=== PATIENT | male | born 1970 | race African-American/Black ===

== ENCOUNTER 2018-02-22 12:31 | Emergency (ER) | payer SELFPAY ==
[2018-02-22 13:59] LABS: Hemoglobin 7.2 g/dL (14.0-18.0); Mean Corpuscular HGB CONC 28.5 g/dL (32.0-36.0); Mean Corpuscular Hemoglobin 16.6 pg (27.0-31.0); Mean Corpuscular Volume 58.1 fl (80.0-94.0); Mean Platelet Volume 5.2 fL (7.4-10.4); Platelet Count 156 thou/uL (130-400); RBC Distribution Width 21.6 % (11.5-14.5); Red Blood Cell (RBC) Count 4.36 mill/uL (4.70-6.10); White Blood Cell (WBC) Count 5.4 thou/uL (4.8-10.8)
[2018-02-22 14:17] LABS: ALT (SGPT) 64 U/L (8-55); AST (SGOT) 94 U/L (5-34); Albumin 4.4 g/dL (3.5-5.0); Alkaline Phosphatase 78 U/L (40-150); Anion Gap 14 mmol/L (10-20); Anisocytosis MODERATE=16-30 cells (100X) (0-5/hpf); BUN (Urea Nitrogen) 6 mg/dL (8.9-20.6); Bilirubin, Total 2.2 mg/dL (0.2-1.2); Calc. Creatinine Clearance 0 mL/min (70-130); Calcium 9.1 mg/dL (7.8-10.44); Carbon Dioxide 26 mmol/L (22-29); Chloride 100 mmol/L (98-107); Eosinophils 1 % (0-10); Estimated GFR-MDRD Greater than 90; Globulin 4.5 g/dL (2.4-3.5); Glucose 76 mg/dL (70-105); Hypochromia MODERATE=16-30 cells (100X) (0-5/hpf); Lipase 49 U/L (8-78); Lymphocytes 30 % (21-51); MDiff Complete? YES; Microcytosis MODERATE=15-30 cells (100X) (0-5/hpf); Monocytes 8 % (0-10); Neutrophil 61 % (42-75); Nucleated RBC 1 % (0); Potassium 3.8 mmol/L (3.5-5.1); Protein, Total 8.9 g/dL (6.0-8.3); Sodium 136 mmol/L (136-145)
[2018-02-22 16:01] LABS: Bilirubin Negative (Negative); Blood, Urine Negative (Negative); Clarity CLEAR (Clear); Glucose, Urine (Dipstick) Negative (Negative); Leukocyte Small (Negative); Nitrite Negative (Negative); Protein, Urine (Dipstick) 30 mg/dL (Neg-Trace); Specific Gravity, Urine 1.022 (1.002-1.036)
[2018-02-22 16:03] LABS: Bacteria/HPF None Seen HPF (None Seen); Hyaline Casts/LPF 4-6 HYALINE CAST LPF (0-3 Hyaline); Pathc Cast-AUWi Flag 0.43 (0-2.49); Squamous Epithelial 0-3 HPF (0-3)
[2018-02-22 16:33] LABS: Yeast-AUWi Flag 26.3 (0-25.0)
[2018-02-22 16:43] LABS: RBC/HPF None Seen HPF (0-3); Yeast-All Forms None Seen HPF (None Seen)
== END 2018-02-22 16:20 | disposition home or self-care (01) ==
LOC: ERS 12:31
DX: D64.9 Anemia, unspecified (principal); K64.9 Unspecified hemorrhoids
CPT/HCPCS: 36415; 80053; 81003; 81015; 82274; 83690; 85025; 85060; 86850; 86900; 86901; 99284

== ENCOUNTER 2018-04-07 08:50 | Day surgery (SDC) | payer SELFPAY ==
[2018-04-07] MEDS ORDERED: Acetaminophen 500 MG TAB PO SCH (09:15)
[2018-04-07] MEDS ORDERED: diphenhydrAMINE 25 MG CAP PO SCH (09:15)
[2018-04-07] MEDS ORDERED: Sodium Chloride 0.9% 40 ML ONE (09:30)
[2018-04-07 13:37] LABS: Hemoglobin 7.6 g/dL (14.0-18.0)
[2018-04-07 15:36] VITALS: BP 140/83; TEMP 98.5
== END 2018-04-07 15:49 | disposition home or self-care (01) ==
LOC: ONC/OP 08:50
PROVIDERS: ATTEND Internal Medicine Hematology & Oncology
PROC: 30233N1 Transfusion of Nonautologous Red Blood Cells into Peripheral Vein, Percutaneous Approach (ICD-10-PCS; principal; 2018-04-07)
DX: D64.9 Anemia, unspecified (principal); D69.6 Thrombocytopenia, unspecified
CPT/HCPCS: 36415; 36416; 36430; 85014; 85018; 86850; 86900; 86901; A4216; P9016

== ENCOUNTER 2023-08-03 18:32 | Inpatient (IN) | payer OTHER, SELFPAY ==
[~2023-08-03 18:32] MED LIST: Iopamidol-370 76% 500 ML MDV (1 ML CHARGE) ONE
[2023-08-03 19:19] LABS: #Basophils 0.1 thou/uL (0.0-0.2); #Eosinphils 0.1 thou/uL (0.0-0.7); #Monocytes 0.9 thou/uL (0.11-0.59); #Neutrophils 4.9 thou/uL (1.40-6.50); %Eosinophils 1.4 % (0.0-10.0); %Lymphocytes 23.4 % (21.0-51.0); %Monocytes 11.5 % (0.0-10.0); %Neutrophils 62.3 % (42.0-75.0); Hematocrit 26.8 % (42.0-52.0); Hemoglobin 7.8 g/dL (14.0-18.0); Mean Corpuscular HGB CONC 29.1 g/dL (32.0-36.0); Mean Corpuscular Hemoglobin 18.9 pg (27.0-31.0); Platelet Count 145 10x3/uL (130-400); RBC Distribution Width 21.4 % (11.5-14.5); Red Blood Cell (RBC) Count 4.12 mill/uL (4.70-6.10); White Blood Cell (WBC) Count 7.9 10x3/uL (4.8-10.8)
[2023-08-03 19:31] LABS: INR-International Normal Ratio 1.2; Prothrombin Time 15.4 sec (12.0-14.7)
[2023-08-03 19:32] LABS: PTT 27.7 sec (22.9-36.1)
[2023-08-03] MEDS ORDERED: Ondansetron PF 4 MG/2 ML Vial ONE (19:42)
[2023-08-03] MEDS ORDERED: Ketorolac Tromethamine 30 MG/ML VIAL ONE (19:42)
[2023-08-03 19:47] LABS: ALT (SGPT) 57 U/L (8-55); AST (SGOT) 83 U/L (5-34); Albumin 3.6 g/dL (3.5-5.0); Alcohol 334.6 mg/dL (Less than 10); Alkaline Phosphatase 55 U/L (40-110); Anion Gap 14 mmol/L (10-20); BUN (Urea Nitrogen) 6 mg/dL (8.4-25.7); Calc. Creatinine Clearance 0 mL/min (70-130); Calcium 8.2 mg/dL (7.8-10.44); Carbon Dioxide 24 mmol/L (22-29); Chloride 98 mmol/L (98-107); Estimated GFR 82; Globulin 3.7 g/dL (2.4-3.5); Glucose 100 mg/dL (70-105); Lipase 76 U/L (8-78); Potassium 3.6 mmol/L (3.5-5.1); Protein, Total 7.3 g/dL (6.0-8.3); Sodium 132 mmol/L (136-145)
[2023-08-03 19:48] LABS: Actual Bicarbonate (HCO3v) 23.9 mEq/L (22-28); Base Excess -0.9 mEq/L (-2.0 to +3.0); Calcium, Ionized (venous) 0.99 mmol/L (1.16-1.32); Chloride (VBG) 102 mmol/L (98-106); Hematocrit-VBG 27 % (42.0-52.0); Hemoglobin (Hb) 9.2 g/dL (13.1-17.2); Potassium (VBG) 3.83 mmol/L (3.70-5.30); Sodium 135.8 mmol/L (133-146); pH (venous) 7.392 (7.32-7.43)
[2023-08-03 19:51] LABS: Troponin I 0.014 ng/mL (< 0.028)
[2023-08-03 20:29] LABS: Anisocytosis MODERATE=16-30 cells HPF (0-5); Burr Cells SLIGHT = 2-5 cells HPF (0-1); CellaVision Operator ID LAB.KB; Hypochromia SLIGHT = 6-15 cells HPF (0-5); Microcytosis MODERATE=15-30 cells HPF (0-5); Ovalocytes SLIGHT = 2-5 cells HPF (0-1); Platelet Adequacy Comment Platelets Normal; Poikilocytosis SLIGHT = 6-15 cells HPF (0-5); Polychromasia MODERATE = 3-4 cells HPF (0-2)
[2023-08-03] MEDS ORDERED: Ondansetron ODT 4 MG TAB SL PRN (21:15)
[2023-08-03] MEDS ORDERED: Ondansetron PF 4 MG/2 ML Vial IVP PRN ×2 (21:15→23:22)
[2023-08-03] MEDS ORDERED: Morphine 4 MG/ML VIAL SLOW IVP PRN (21:15)
[2023-08-03] MEDS ORDERED: Acetaminophen 325 MG TAB PO PRN (21:15)
[2023-08-03] MEDS ORDERED: Sodium Chloride 0.9% 1,000 ML IV SCH ×2 (21:15→23:59)
[2023-08-03] MEDS ORDERED: Ketorolac Tromethamine 30 MG/ML VIAL IVP PRN (21:15)
[2023-08-03 21:22] VITALS: BMI 28.5
[2023-08-03 22:56] LABS: Amphetamine Not Detected (NotDetected); Barbiturates Screen Not Detected (NotDetected); Benzodiazepine Screen Not Detected (NotDetected); Cocaine Metabolite Screen Not Detected (NotDetected); Methadone Not Detected (NotDetected); Methamphetamine Not Detected (NotDetected); Opiate Screen Not Detected (NotDetected); Oxycodone Screen Not Detected (NotDetected); Phencyclidine (PCP) Not Detected (NotDetected); THC/Cannabinoid Screen Not Detected (NotDetected); Tricyclic Screen Not Detected (NotDetected)
[2023-08-03 23:07] LABS: Bacteria/HPF None Seen HPF (None Seen); RBC/HPF 0-3 HPF (0-3); Squamous Epithelial None Seen HPF (0-3); WBC/HPF 0-3 HPF (0-3)
[2023-08-03] MEDS ORDERED: Glucagon 1 MG/ML KIT IM PRN (23:22)
[2023-08-03] MEDS ORDERED: Dextrose 5% in Water 1,000 ML IV PRN (23:22)
[2023-08-03] MEDS ORDERED: Ipratropium/Albuterol 3 ML NEB NEB PRN (23:22)
[2023-08-03] MEDS ORDERED: Ondansetron ODT 4 MG TAB PO PRN (23:22)
[2023-08-03] MEDS ORDERED: Dextrose 50% Abboject 50 ML SYRINGE SLOW IVP PRN (23:22)
[2023-08-03] MEDS ORDERED: hydrALAZINE 20 MG/ML VIAL SLOW IVP PRN (23:22)
[2023-08-03] MEDS ORDERED: Cyclobenzaprine 10 MG TAB PO PRN (23:26)
[2023-08-03] MEDS ORDERED: traMADol HCl 50 MG TAB PO PRN (23:27)
[2023-08-03] MEDS ORDERED: Ibuprofen 200 MG TAB PO PRN (23:27)
[2023-08-03] MEDS: Oxazepam 10 MG CAP PO SCH (23:57)
[2023-08-03] MEDS: traMADol HCl 50 MG TAB PO SCH (23:57)
[2023-08-03] MEDS: Acetaminophen 500 MG TAB PO SCH (23:57)
[2023-08-04] MEDS: traMADol HCl 50 MG TAB PO SCH ×3 (05:25→18:25)
[2023-08-04] MEDS: Gabapentin 100 MG CAP PO SCH ×3 (05:26→21:12)
[2023-08-04] MEDS: Acetaminophen 500 MG TAB PO SCH ×3 (05:26→18:21)
[2023-08-04 05:28] LABS: #Basophils 0.1 thou/uL (0.0-0.2); #Monocytes 0.8 thou/uL (0.11-0.59); #Neutrophils 4.3 thou/uL (1.40-6.50); %Basophils 0.7 % (0.0-1.0); %Eosinophils 0.6 % (0.0-10.0); %Lymphocytes 24.8 % (21.0-51.0); %Neutrophils 61.6 % (42.0-75.0); Hematocrit 28.6 % (42.0-52.0); Hemoglobin 8.3 g/dL (14.0-18.0); Mean Corpuscular Volume 65.6 fl (78.0-98.0); Mean Platelet Volume 9.9 fL (7.4-10.4); Platelet Count 145 10x3/uL (130-400); RBC Distribution Width 21.4 % (11.5-14.5); Red Blood Cell (RBC) Count 4.36 mill/uL (4.70-6.10)
[2023-08-04 07:19] LABS: Anion Gap 13 mmol/L (10-20); BUN (Urea Nitrogen) 5 mg/dL (8.4-25.7); Calc. Creatinine Clearance 142 mL/min (70-130); Calcium 8.4 mg/dL (7.8-10.44); Carbon Dioxide 26 mmol/L (22-29); Chloride 105 mmol/L (98-107); Estimated GFR 107; Glucose 77 mg/dL (70-105); Potassium 4.1 mmol/L (3.5-5.1); Sodium 140 mmol/L (136-145)
[2023-08-04] MEDS ORDERED: Ferrous Sulfate 325 MG TAB PO SCH (08:00)
[2023-08-04] MEDS ORDERED: Multivitamin W/ Minerals 1 TAB PO SCH (09:00)
[2023-08-04] MEDS: Ferrous Sulfate 325 MG TAB PO SCH ×3 (09:25→19:39)
[2023-08-04] MEDS: Famotidine 20 MG TAB PO SCH ×2 (10:35→21:11)
[2023-08-04] MEDS: Oxazepam 10 MG CAP PO SCH ×3 (10:35→21:12)
[2023-08-04] MEDS: Folic Acid 1 MG TAB PO SCH (10:35)
[2023-08-04] MEDS: Ascorbic Acid 500 mg Chewable Tablet PO SCH ×2 (10:35→21:12)
[2023-08-04] MEDS: Thiamine 100 MG TAB PO SCH (10:36)
[2023-08-05] MEDS: Acetaminophen 500 MG TAB PO SCH ×2 (00:47→05:25)
[2023-08-05] MEDS: traMADol HCl 50 MG TAB PO SCH ×2 (00:47→05:26)
[2023-08-05] MEDS: Oxazepam 10 MG CAP PO SCH ×2 (04:20→09:00)
[2023-08-05] MEDS: Gabapentin 100 MG CAP PO SCH (05:27)
[2023-08-05] MEDS ORDERED: Amlodipine 5 MG TAB PO SCH ×2 (09:00)
[2023-08-05] MEDS: Ferrous Sulfate 325 MG TAB PO SCH (10:11)
[2023-08-05] MEDS: Famotidine 20 MG TAB PO SCH (10:11)
[2023-08-05] MEDS: Ascorbic Acid 500 mg Chewable Tablet PO SCH (10:11)
[2023-08-05] MEDS: Folic Acid 1 MG TAB PO SCH (10:11)
[2023-08-05] MEDS: Thiamine 100 MG TAB PO SCH (10:12)
[2023-08-05 14:36] VITALS: BP 136/89; TEMP 98
== END 2023-08-05 15:42 | disposition home or self-care (01) | DRG 200 ==
LOC: ERS 18:32 → SURG B 19:53 → OBSVTOIN 08-04 14:21
PROVIDERS: ADMIT Surgery; ATTEND Surgery
PROC: 4A043R1 Measurement of Venous Saturation, Peripheral, Percutaneous Approach (ICD-10-PCS; principal; 2023-08-03)
DX: S27.0XXA Traumatic pneumothorax, initial encounter (principal); E87.1 Hypo-osmolality and hyponatremia; S22.089A Unspecified fracture of T11-T12 vertebra, initial encounter for closed fracture; S22.42XA Multiple fractures of ribs, left side, initial encounter for closed fracture; V86.95XA Unspecified occupant of 3- or 4- wheeled all-terrain vehicle (ATV) injured in nontraffic accident, initial encounter; F10.129 Alcohol abuse with intoxication, unspecified; D50.9 Iron deficiency anemia, unspecified
CPT/HCPCS: 36415; 70450; 71045; 71260; 72125; 74177; 80048; 80053; 80306; 80307; 81015; 82805; 83605; 83690; 84484; 85025; 85610; 85730; 93005; 94760; 96361; 96374; 96375; G0378; G0390; J1885; J2405; J7050; Q9967